=== PATIENT | male | born 1985 | race Caucasian/White ===

== ENCOUNTER 2018-10-07 18:59 | Emergency (ER) | payer SELFPAY ==
[2018-10-07 19:17] VITALS: BMI 25.2
--- NOTE | 2018-10-07 19:59 | PDOC ---
History of Present Illness <Mikki Hardwick - Last Filed: 10/07/18 21:41> - General History Source: Patient - History of Present Illness Initial Comments: 10/07/18 19:54 33 yr old man with no significant pmhx presents with persistent nausea and 3 episodes of nonbloody vomiting since . he works in a kitchen and ate cooked rice, salmon and orange juice. he had 1 episode of emesis 30mins after. nausea persisted throughout tuesday, but he was able to eat a salad consistent of vegetables. today he had another episode of vomiting after eating. still feels nauseous. he took peptobismal at home that helped with the symptoms. takes unknown psych medication for depression, he stopped it out of his own accord 1 month ago. had a dry cough for 3 days, 1 month ago. denies travel. Denies headache, chest pain, cough, abdominal pain, diarrhea, constipation, fever. current everyday smoker: 2-3cigs since he was 22 denies etoh use, nothing current in last 1 month. used to rarely smoke marijuana , last use in his 20's surghx - denies Timing/Duration: other (since 10/05/2018) Severity: mild Associated Symptoms: reports: nausea/vomiting <Bridget Luna - Last Filed: 10/07/18 21:48> - General Chief Complaint: Pain, Acute Stated Complaint: STOMACH PAIN/NAUSEA Time Seen by Provider: 10/07/18 19:42 Past History <Mikki Hardwick - Last Filed: 10/07/18 21:41> - Travel Traveled outside of the country in the last 30 days: No - Past Medical History COPD: No - Suicide/Smoking/Psychosocial Hx Smoking History: Current every day smoker Have you smoked in the past 12 months: Yes <Bridget Luna - Last Filed: 10/07/18 21:48> - Past Medical History Allergies/Adverse Reactions: Allergies Allergy/AdvReac Type Severity Reaction Status Date / Time No Known Allergies Allergy Verified 10/07/18 19:17 Review of Systems - Review of Systems Able to Perform ROS?: Yes Is the patient limited Zambian proficient: No Constitutional: No: Fever, Loss of Appetite, Night Sweats, Weakness, Weight Stable, Unintentional Wgt. Loss Cardiac (ROS): No: Chest Pain <Jose Lunaithsophia - Last Filed: 10/07/18 21:48> *Physical Exam - Vital Signs Last Vital Signs Temp Pulse Resp BP Pulse Ox 98.5 F 69 18 114/74 98 10/07/18 19:16 10/07/18 19:16 10/07/18 19:16 10/07/18 19:16 10/07/18 19:16 <Mikki Hardwick - Last Filed: 10/07/18 21:41> - Vital Signs Last Vital Signs Temp Pulse Resp BP Pulse Ox 98.5 F 69 18 114/74 98 10/07/18 19:16 10/07/18 19:16 10/07/18 19:16 10/07/18 19:16 10/07/18 19:16 - Physical Exam General Appearance: Yes: Nourished, Appropriately Dressed HEENT: positive: EOMI, ANDREA, Normal Voice, Pharynx Normal, Hearing Grossly Normal Neck: positive: Trachea midline, Normal Thyroid, Supple Respiratory/Chest: positive: Lungs Clear, Normal Breath Sounds Cardiovascular: positive: Regular Rhythm, Regular Rate. negative: Murmur Gastrointestinal/Abdominal: positive: Normal Bowel Sounds. negative: Tender, Organomegaly, Pulsatile Mass, Distended, Guarding, Rebound Musculoskeletal: negative: CVA Tenderness Extremity: positive: Normal Range of Motion Neurologic: positive: Fully Oriented, Alert, Motor Strength 5/5 <Bridget Luna - Last Filed: 10/07/18 21:48> Moderate Sedation - Procedure Monitoring Vital Signs: Procedure Monitoring Vital Signs Temperature 98.5 F 10/07/18 19:16 Pulse Rate 10/07/18 19:16 Respiratory Rate 18 10/07/18 19:16 Blood Pressure 114/74 10/07/18 19:16 O2 Sat by Pulse Oximetry (%) 98 10/07/18 19:16 <Mikki Hardwick - Last Filed: 10/07/18 21:41> - Procedure Monitoring Vital Signs: Procedure Monitoring Vital Signs Temperature 98.5 F 10/07/18 19:16 Pulse Rate 69 10/07/18 19:16 Respiratory Rate 18 10/07/18 19:16 Blood Pressure 114/74 10/07/18 19:16 O2 Sat by Pulse Oximetry (%) 98 10/07/18 19:16 <Bridget Luna - Last Filed: 10/07/18 21:48> ED Treatment Course - LABORATORY CBC & Chemistry Diagram: 10/07/18 20:31 10/07/18 20:31 - ADDITIONAL ORDERS Additional order review: Laboratory Results 10/07/18 20:31 Sodium 139 Potassium 3.7 Chloride 102 Carbon Dioxide 31 Anion Gap 6 L BUN 17 Creatinine 0.7 Creat Clearance w eGFR > 60 Random Glucose 96 Calcium 8.5 Total Bilirubin 0.2 AST 22 ALT 41 Alkaline Phosphatase 116 Total Protein 7.6 Albumin 4.2 10/07/18 20:31 RBC 4.94 MCV 86.6 MCHC 35.5 RDW 13.2 MPV 7.5 Neutrophils % 51.2 Lymphocytes % 27.3 Monocytes % 15.5 H Eosinophils % 5.2 H Basophils % 0.8 - Medications Given in the ED: ED Medications Discontinued Medications Generic Name Dose Route Start Last Admin Trade Name Freq PRN Reason Stop Dose Admin Sodium Chloride 1,000 ml 10/07/18 20:44 10/07/18 21:07 Normal Saline - IV 10/07/18 20:45 1,000 ml ONCE ONE Administration <Mikki Hardwick - Last Filed: 10/07/18 21:41> - LABORATORY CBC & Chemistry Diagram: 10/07/18 20:31 10/07/18 20:31 <Bridget Luna - Last Filed: 10/07/18 21:48> Medical Decision Making - Medical Decision Making 10/07/18 20:23 33 yr old man with no pmhx with nausea for 2 days without fever and normal vital signs. will check cmp for any electrolyte abnormalities, renal and liver dysfunction that may be causing his symptoms and r/o volume depletion. he appears euvolemic symptoms could indicate hyperglycemia, will see that on cmp. if labs are stable, may be able to dc home with outpatient pcp follow-up. IVF 1L for hydration 10/07/18 21:27 pt tolerated po change with water, labs all within normal limits. no hyper or hypoglycemia, no electrolyte abnormalities to account for nausea/vomiting. can f/u as outpatient with PCP Dr. Coello recommend OTC meds for relief, counseled on new symptoms and on indications to return to ED. 10/07/18 21:47 reviewed findings with pt, pt is in agreement with plan to monitor symptoms at home, f/u with his PCP and RTC to the ED for any new or worsening symptoms <Bridget Luna - Last Filed: 10/07/18 21:48> *DC/Admit/Observation/Transfer - Discharge Dispostion Decision to Admit order: No <Mikki Hardwick - Last Filed: 10/07/18 21:41> <Bridget Luna - Last Filed: 10/07/18 21:48> Diagnosis at time of Disposition: Food poisoning - Discharge Dispostion Disposition: HOME Condition at time of disposition: Improved - Patient Instructions Printed Discharge Instructions: DI for Food Poisoning, Smoking Cessation Additional Instructions: You were evaluated for nausea and vomiting for 2 days. you didn't have a fever, or any lab abnormalities and able to drink water without any difficulty. Drink plenty of water and eat what you can tolerate. If you symptoms worse or return, or you develop any new symptoms including diarrhea, chest pain, fevers, trouble breathing please return to the hospital. Please see you primary care physician as soon as possible for post-hospital follow-up. - Post Discharge Activity Forms/Work/School Notes: Back to Work
[2018-10-07 20:39] LABS: BASO % 0.8 % (0-2.0); EOS % 5.2 % (0-4.5); HEMATOCRIT 42.8 % (35.4-49); HEMOGLOBIN 15.2 GM/dL (11.7-16.9); LYMPH % 27.3 % (8-40); MCH 30.7 pg (25.7-33.7); MCHC 35.5 g/dl (32.0-35.9); MEAN CELL VOLUME 86.6 fl (80-96); MEAN PLT VOLUME 7.5 fl (7.5-11.1); MONO % 15.5 % (3.8-10.2); NEUT % 51.2 % (42.8-82.8); PLATELET COUNT 257 K/MM3 (134-434); RBC 4.94 M/mm3 (4.00-5.60); RDW 13.2 % (11.9-15.9); WHITE BLOOD COUNT 5.6 K/mm3 (4.0-10.0)
[2018-10-07] MEDS ORDERED: SODIUM CHLORIDE 0.9% 500 ML INFUS.BAG IV ONE (20:44)
--- NOTE | 2018-10-07 20:44 | PDOC ---
Attending Attestation - HPI HPI: 10/07/18 21:21 The patient is a 33 year old male with no reported past medical history presents to the emergency department with nausea and vomiting. The patient presents with 3 days of nausea, NBNB emesis and diarrhea. The patient reports on Tuesday he was still feeling nauseous, however he was able to keep food down without emesis. The patient reports today he was still feeling nauseous with a single episode of emesis. 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 Denies fever, chills, diarrhea, urinary symptoms. Allergies: NKDA Social history: everyday smoker. - Physicial Exam PE: 10/07/18 21:38 GENERAL: Awake, alert, and fully oriented, in no acute distress. Afebril. HEAD: No signs of trauma LUNGS: Breath sounds equal, clear to auscultation bilaterally. No wheezes, and no crackles HEART: Regular rate and rhythm, normal S1 and S2, no murmurs, rubs or gallops ABDOMEN: No abdominal pain in all 4 quadrants. No rebound or guarding. normoactive bowel sounds. EXTREMITIES: Normal range of motion, no edema. No clubbing or cyanosis. No cords, erythema, or tenderness NEUROLOGICAL: Cranial nerves II through XII grossly intact. Normal speech, normal gait SKIN: Warm, Dry, normal turgor, no rashes or lesions noted. - Medical Decision Making 10/07/18 21:21 Documentation prepared by Khushi Charles, acting as biomedical service engineer for Mikki Hardwick MD. <Khushi Charles - Last Filed: 10/07/18 21:38> - Resident Resident Name: Bridget Luna - ED Attending Attestation I have performed the following: I have examined & evaluated the patient, The case was reviewed & discussed with the resident, I agree w/resident's findings & plan - Medical Decision Making 10/07/18 21:33 Pt has no rebound and guarding and feels much better. No fever and no flank or perineal pain or complaints. Pt has no dysuria and no penile discharge. 10/07/18 23:10 Pt feeling better; he needs a work note for 3 days off <Mikki Hardwick - Last Filed: 10/07/18 23:11>
[2018-10-07 21:05] LABS: ALBUMIN 4.2 g/dl (3.4-5.0); ALK PHOS 116 U/L (45-117); ANION GAP 6 MMOL/L (8-16); BILIRUBIN,TOTAL 0.2 mg/dL (0.2-1); BLOOD UREA NITROGEN 17 mg/dL (7-18); CALCIUM 8.5 mg/dL (8.5-10.1); CHLORIDE 102 mmol/L (98-107); CO2 31 mmol/L (21-32); CREATININE 0.7 mg/dL (0.55-1.3); GLUCOSE,RANDOM 96 mg/dL (74-106); POTASSIUM 3.7 mmol/L (3.5-5.1); SGOT/AST 22 U/L (15-37); SGPT/ALT 41 U/L (13-61); SODIUM 139 mmol/L (136-145); TOT PROT 7.6 g/dl (6.4-8.2)
[2018-10-07 22:18] VITALS: BP 115/72; PULSE 64; TEMP 98.1
== END 2018-10-07 22:18 | disposition home or self-care (01) ==
LOC: JER 18:59
DX: T62.8X1A Toxic effect of other specified noxious substances eaten as food, accidental (unintentional), initial encounter (principal); R11.2 Nausea with vomiting, unspecified; Y92.038 Other place in apartment as the place of occurrence of the external cause; F17.210 Nicotine dependence, cigarettes, uncomplicated
CPT/HCPCS: 36415; 80053; 85025; 99282-25

== ENCOUNTER 2018-12-29 00:37 | Emergency (ER) | payer OTHER ==
[2018-12-29 00:57] VITALS: BP 119/64; BMI 27.9
--- NOTE | 2018-12-29 01:13 | PDOC ---
History of Present Illness - General Chief Complaint: Cold Symptoms Stated Complaint: FEVER Time Seen by Provider: 12/29/18 01:04 - History of Present Illness Initial Comments: 12/29/18 01:11 33 yo M with no significant pmh who p/w vomiting, and diarrhea. Patient reports 1 day of multiple, non mucoid, non bloody 5 + loose watery stools, with 5+ episodes of NBNB emesis. Unable to tolerate PO intake. Denies recent travel, hiking, camping, sick contacts. Recently treated for flu x 1 month ago. Denies abdominal pain. No identifiable triggers or alleviators. Patient denies JONES, vision change, palpitations, cough, wheezing, orthopena, PND , leg swelling/pain, F,C, CP, SOB, urinary complaints, hematuria, BPR, abdominal pain, constipation, lightheadedness, weakness, sensory changes. PMHx: as noted above Surgical: Denies abdominal surgery ROS: as noted SHx: Denies Etoh, IVDA, tobacco use Allergies: NKDA Past History - Past Medical History Allergies/Adverse Reactions: Allergies Allergy/AdvReac Type Severity Reaction Status Date / Time No Known Allergies Allergy Verified 12/29/18 00:53 Home Medications: Ambulatory Orders NK [No Known Home Medication] 12/29/18 COPD: No - Suicide/Smoking/Psychosocial Hx Smoking History: Never smoked Have you smoked in the past 12 months: No Information on smoking cessation initiated: No Hx Alcohol Use: No Drug/Substance Use Hx: No Review of Systems - Review of Systems Comments:: 12/29/18 01:12 GENERAL/CONSTITUTIONAL: No fever or chills. No weakness. HEAD, EYES, EARS, NOSE AND THROAT: No change in vision. No ear pain or discharge. No sore throat. CARDIOVASCULAR: No chest pain or shortness of breath RESPIRATORY: No cough, wheezing, or hemoptysis. GASTROINTESTINAL: + nausea, vomiting, diarrhea. No constipation. GENITOURINARY: No dysuria, frequency, or change in urination. MUSCULOSKELETAL: No joint or muscle swelling or pain. No neck or back pain. SKIN: No rash NEUROLOGIC: No headache, vertigo, loss of consciousness, or change in strength/ sensation. ENDOCRINE: No increased thirst. No abnormal weight change HEMATOLOGIC/LYMPHATIC: No anemia, easy bleeding, or history of blood clots. ALLERGIC/IMMUNOLOGIC: No hives or skin allergy. *Physical Exam - Vital Signs Last Vital Signs Temp Pulse Resp BP Pulse Ox 99.7 F H 108 H 20 119/64 97 12/29/18 00:53 12/29/18 00:53 12/29/18 00:53 12/29/18 00:53 12/29/18 00:53 - Physical Exam Comments: 12/29/18 01:12 GENERAL: Awake, alert, and fully oriented, in no acute distress HEAD: No signs of trauma, normocephalic, atraumatic EYES: PERRLA, EOMI, sclera anicteric, conjunctiva clear ENT: + Dry mucous membranes. Auricles normal inspection, hearing grossly normal , nares patent, oropharynx clear without exudates. NECK: Normal ROM, supple, no lymphadenopathy, JVD, or masses LUNGS: No distress, speaks full sentences, clear to auscultation bilaterally HEART: Regular rate and rhythm, normal S1 and S2, no murmurs, rubs or gallops, peripheral pulses normal and equal bilaterally. ABDOMEN: Soft, nontender, normoactive bowel sounds. No guarding, no rebound. No masses EXTREMITIES : Normal inspection, Normal range of motion, no edema. No clubbing or cyanosis. NEUROLOGICAL: Cranial nerves II through XII grossly intact. Normal speech, normal gait, no focal sensorimotor deficits SKIN: Warm, Dry, normal turgor, no rashes or lesions noted ED Treatment Course - LABORATORY CBC & Chemistry Diagram: 12/29/18 04:27 12/29/18 04:00 Medical Decision Making - Medical Decision Making 12/29/18 01:47 33 yo M with no significant pmh who p/w vomiting, and diarrhea. Oral temp 99.7, HR 108, vitals otherwise wnl, AF, A&Ox3. + Dry mucous membranes. Patient with possible gastroenteritis, malabsorption syndrome, gastritis, pancreatitis, biliary dz. gastroparesis. Will assess for cardiac dysarrythmias, hypoglycemia, electrolyte abnml, metabolic and toxic derangements, acid-base disturbances, infection. Ed Course: NS, Zofran, Tylenol 12/29/18 04:56 CBC,CMP: Unremarkable Patient tolerating PO intake Stable for d/c with return precautions *DC/Admit/Observation/Transfer Diagnosis at time of Disposition: Vomiting and diarrhea - Discharge Dispostion Condition at time of disposition: Stable Decision to Admit order: No - Referrals - Patient Instructions Printed Discharge Instructions: DI for Diarrhea and Traveler's Diarrhea -- Adult Additional Instructions: Please return to the emergency department with any new or worsening symptoms or concerns. Please follow up with your primary care physician within 72 hours. - Post Discharge Activity
[2018-12-29] MEDS ORDERED: ONDANSETRON 4 MG/2 ML VIAL IVPB ONE (01:38)
[2018-12-29] MEDS ORDERED: ACETAMINOPHEN 1000 MG/100 ML VIAL (NON FORMULARY) IVPB ONE (01:39)
[2018-12-29] MEDS ORDERED: SODIUM CHLORIDE 1,000 ML IV STA (01:39)
[2018-12-29] MEDS ORDERED: ACETAMINOPHEN INJECTION 100 ML IVPB ONE (01:49)
[2018-12-29] MEDS ORDERED: ONDANSETRON 4 MG/2 ML VIAL ONE (01:50)
--- NOTE | 2018-12-29 03:26 | PDOC ---
Attending Attestation - Resident Resident Name: Kirit Bauer - ED Attending Attestation I have performed the following: I have examined & evaluated the patient, The case was reviewed & discussed with the resident, I agree w/resident's findings & plan, Exceptions are as noted - HPI HPI: 12/29/18 05:12 33M denies pmh here with 1 day of nausea, multiple episodes of vomiting/diarrhea , no sick contacts, recent travel, states he had flu last month. No other complaints. - Physicial Exam PE: 12/29/18 05:13 Well appearing, NAD, AOx3 Abd soft, nt, nd, no guarding, no rebound - Medical Decision Making 12/29/18 05:13 Benign abdominal exam, likely AGE f/u labs re-eval after symptomatic tx Labs unremarkable Subjective complaints resolved with tx No episodes of vomiting/diarrhea in ED DC
[2018-12-29 04:26] LABS: ALK PHOS 85 U/L (45-117); ANION GAP 9 MMOL/L (8-16); BILIRUBIN,TOTAL 0.2 mg/dL (0.2-1); BLOOD UREA NITROGEN 12 mg/dL (7-18); CALCIUM 8.6 mg/dL (8.5-10.1); CHLORIDE 106 mmol/L (98-107); CO2 24 mmol/L (21-32); CREATININE 0.7 mg/dL (0.55-1.3); GLUCOSE,RANDOM 103 mg/dL (74-106); POTASSIUM 3.8 mmol/L (3.5-5.1); SGOT/AST 30 U/L (15-37); SGPT/ALT 38 U/L (13-61); SODIUM 139 mmol/L (136-145); TOT PROT 7.5 g/dl (6.4-8.2)
[2018-12-29 04:36] LABS: BASO % 0.5 % (0-2.0); EOS % 1.5 % (0-4.5); HEMATOCRIT 40.1 % (35.4-49); HEMOGLOBIN 13.3 GM/dL (11.7-16.9); LYMPH % 10.4 % (8-40); MCH 29.2 pg (25.7-33.7); MCHC 33.3 g/dl (32.0-35.9); MEAN CELL VOLUME 87.7 fl (80-96); MEAN PLT VOLUME 7.6 fl (7.5-11.1); MONO % 6.1 % (3.8-10.2); NEUT % 81.5 % (42.8-82.8); PLATELET COUNT 190 K/MM3 (134-434); RBC 4.57 M/mm3 (4.00-5.60); RDW 14.2 % (11.9-15.9)
[2018-12-29 04:55] VITALS: PULSE 88; TEMP 98.8
[2018-12-29 04:59] LABS: URINE APPEARANCE CLEAR; URINE BILIRUBIN NEGATIVE (NEGATIVE); URINE COLOR YELLOW; URINE GLUCOSE (UA) NEGATIVE (NEGATIVE); URINE KETONE NEGATIVE (NEGATIVE); URINE LEUK ESTERASE NEGATIVE (NEGATIVE); URINE NITRITE NEGATIVE (NEGATIVE); URINE PROTEIN NEGATIVE (NEGATIVE); URINE UROBILINOGEN 0.2 mg/dL (0.2-1.0)
== END 2018-12-29 05:14 | disposition home or self-care (01) ==
LOC: JER 00:37
PROC: 3E033NZ Introduction of Analgesics, Hypnotics, Sedatives into Peripheral Vein, Percutaneous Approach (ICD-10-PCS; principal; 2018-12-29)
PROC: 3E033GC Introduction of Other Therapeutic Substance into Peripheral Vein, Percutaneous Approach (ICD-10-PCS; 2018-12-29)
DX: K52.9 Noninfective gastroenteritis and colitis, unspecified (principal)
CPT/HCPCS: 36415; 80053; 81003; 83690; 85025; 96374; 96375; 99282-25; J0131; J7030

== ENCOUNTER 2019-06-13 20:05 | Inpatient (IN) | payer OTHER ==
[2019-06-13] MEDS ORDERED: SODIUM CHLORIDE 1,000 ML IV STA (20:13)
[2019-06-13] MEDS ORDERED: ONDANSETRON 4 MG/2 ML VIAL IVPUSH ONE (20:13)
--- NOTE | 2019-06-13 20:13 | PDOC ---
Rapid Medical Evaluation Time Seen by Provider: 06/13/19 20:11 Medical Evaluation: Allergies Allergy/AdvReac Type Severity Reaction Status Date / Time No Known Allergies Allergy Verified 12/29/18 00:53 06/13/19 20:11 CC: diffuse abd pain with n/v PE: Abd benign. Orders: labs, urine Patient will proceed to ER for further evaluation. Discharge Disposition - Diagnosis Abdominal pain - Referrals - Patient Instructions - Post Discharge Activity
[2019-06-13 20:49] LABS: BASO % 0.6 % (0-2.0); EOS % 0.8 % (0-4.5); HEMATOCRIT 43.3 % (35.4-49); HEMOGLOBIN 14.1 GM/dL (11.7-16.9); LYMPH % 8.3 % (8-40); MCH 28.4 pg (25.7-33.7); MCHC 32.5 g/dl (32.0-35.9); MEAN CELL VOLUME 87.5 fl (80-96); MEAN PLT VOLUME 7.6 fl (7.5-11.1); MONO % 7.2 % (3.8-10.2); NEUT % 83.1 % (42.8-82.8); PLATELET COUNT 276 K/MM3 (134-434); RBC 4.96 M/mm3 (4.00-5.60); RDW 13.7 % (11.9-15.9); URINE APPEARANCE CLEAR; URINE BILIRUBIN NEGATIVE (NEGATIVE); URINE COLOR YELLOW; URINE GLUCOSE (UA) NEGATIVE (NEGATIVE); URINE KETONE NEGATIVE (NEGATIVE); URINE LEUK ESTERASE NEGATIVE (NEGATIVE); URINE NITRITE NEGATIVE (NEGATIVE); URINE PROTEIN NEGATIVE (NEGATIVE); URINE UROBILINOGEN 0.2 mg/dL (0.2-1.0); WHITE BLOOD COUNT 14.8 K/mm3 (4.0-10.0)
[2019-06-13] MEDS ORDERED: ONDANSETRON 4 MG/2 ML VIAL ONE (21:18)
[2019-06-13 21:19] LABS: ALBUMIN 4.2 g/dl (3.4-5.0); BILIRUBIN,TOTAL 0.2 mg/dL (0.2-1); BLOOD UREA NITROGEN 11.8 mg/dL (7-18); CALCIUM 8.9 mg/dL (8.5-10.1); CREATININE 0.8 mg/dL (0.55-1.3); POTASSIUM 4.1 mmol/L (3.5-5.1); TOT PROT 7.7 g/dl (6.4-8.2)
[2019-06-13] MEDS ORDERED: SODIUM CHLORIDE 0.9% 1000 ML INFUS.BAG IV ONE (21:21)
[2019-06-13] MEDS ORDERED: ACETAMINOPHEN 1000 MG/100 ML VIAL (NON FORMULARY) IVPB ONE (21:23)
[2019-06-13] MEDS ORDERED: FAMOTIDINE 20 MG/50 ML IVPB 20 MG/50 ML MG IVPB ONE ×2 (21:23→22:20)
[2019-06-13] MEDS ORDERED: MAG HYDROX/AL HYDROX/SIMETH 30 ML UNIT-DOSE CUP PO ONE (21:23)
--- NOTE | 2019-06-13 21:51 | PDOC ---
History of Present Illness - General Chief Complaint: Pain Stated Complaint: ABD/PAIN Time Seen by Provider: 06/13/19 20:11 - History of Present Illness Initial Comments: 06/13/19 21:51 This is a 34 year old male with no significant PMH. He presented to the ER with complaints of diffuse abdominal pain that began around 4PM. The pain was sudden in onset, 9/10 in intensity, dull in quality, constant in nature, non-radiating , alleviated by lying still and exacerbated by movement. He has had no associated nausea, vomiting, diarrhea,2 or constipation. Past History - Travel Traveled outside of the country in the last 30 days: No Close contact w/someone who was outside of country & ill: No - Past Medical History Allergies/Adverse Reactions: Allergies Allergy/AdvReac Type Severity Reaction Status Date / Time No Known Allergies Allergy Verified 06/13/19 20:14 Home Medications: Ambulatory Orders Acetaminophen [Tylenol] 650 mg PO PRN 12/29/18 Ondansetron [Zofran Odt -] 4 mg SL BID #14 od.tablet 12/29/18 COPD: No - Immunization History Immunization Up to Date: Yes - Psycho Social/Smoking Cessation Hx Smoking History: Never smoked Have you smoked in the past 12 months: No Information on smoking cessation initiated: No Hx Alcohol Use: No Drug/Substance Use Hx: No Review of Systems - Review of Systems Able to Perform ROS?: Yes Is the patient limited [place]uran proficient: No Constitutional: No: Symptoms Reported, See HPI, Chills, Diaphoresis, Fever, Loss of Appetite, Malaise, Night Sweats, Weakness, Weight Stable, Unintentional Wgt. Loss, Unexplained wgt Loss, Other HEENTM: No: Symptoms Reported, See HPI, Eye Pain, Blurred Vision, Tearing, Recent change in vision, Double Vision, Cataracts, Ear Pain, Ocular Prothesis, Ear Discharge, Nose Pain, Nose Congestion, Tinnitus, Nose Bleeding, Hearing Loss , Throat Pain, Throat Swelling, Mouth Pain, Dental Problems, Difficulty Swallowing, Mouth Swelling, Other Respiratory: No: Symptoms reported, See HPI, Cough, Orthopnea, Shortness of Breath, SOB with Exertion, SOB at Rest, Stridor, Wheezing, Productive cough, Hemoptysis, Other Cardiac (ROS): No: Symptoms Reported, See HPI, Chest Pain, Edema, Irregular Heart Rate, Lightheadedness, Palpitations, Syncope, Chest Tightness, Other ABD/GI: Yes: Abdominal cramping : No: Symptoms Reported, See HPI, Burning, Dysuria, Discharge, Frequency, Flank Pain, Hematuria, Incontinence, Pain, Urgency, Testicular Mass, Testicular Swelling, Lesions, Testicular Pain, Other Musculoskeletal: No: Symptoms Reported, See HPI, Back Pain, Gout, Joint Pain, Joint Swelling, Muscle Pain, Muscle Weakness, Neck Pain, Joint Stiffness, Other Integumentary: No: Symptoms Reported, See HPI, Bruising, Change in Color, Change in Hair/Nails, Dryness, Erythema, Flushing, Lesions, Lumps, Pallor, Pruritus, Rash, Sweating, Other Neurological: No: Symptoms reported, See HPI, Headache, Numbness, Paresthesia, Pre-Existing Deficit, Seizure, Tingling, Tremors, Weakness, Unsteady Gait, Ataxia, Dizziness, Other Psychiatric: No: Anxiety, Depression, Frequent Crying, Stressors, Sleep Pattern Change, Emotional Problems, Mood Swings, Change in Appetite, Other Endocrine: No: Symptoms Reported, See HPI, Excessive Sweating, Flushing, Intolerance to Cold, Intolerance to Heat, Increased Hunger, Increased Thirst, Increased Urine, Unexplained Weight Gain, Unexplained Weight Loss, Change in Weight, Other Hematologic/Lymphatic: No: Symptoms Reported, See HPI, Anemia, Blood Clots, Easy Bleeding, Easy Bruising, Bleeding Diathesis, Lymph Node Abnormalities, Swollen Glands, Other *Physical Exam - Vital Signs Last Vital Signs Temp Pulse Resp BP Pulse Ox 99.8 F H 101 H 18 122/79 100 06/13/19 20:12 06/13/19 20:12 06/13/19 20:12 06/13/19 20:12 06/13/19 20:12 - Physical Exam Comments: 06/13/19 23:15 GI: Soft, epigastric and umbilical tenderness, no CVA tenderness, no guarding or rebound tenderness, negative Psoas, Mena's, and Rovsing's General Appearance: Yes: Appropriately Dressed. No: Nourished, Apparent Distress, Disheveled, Mild Distress, Moderate Distress, Severe Distress, Alcohol on Breath, Intoxicated, Cachetic, Obese, Thin, Other HEENT: positive: Normal ENT Inspection, Normal Voice, Symmetrical, Pharynx Normal. negative: EOMI, ANDREA, TMs Normal, Pale Conjunctivae, Photophobia, Scleral Icterus (R), Scleral Icterus (L), Muffled/Hoarse voice, Pharyngeal Erythema, Tonsillar Exudate, Tonsillar Erythema, Nasal Congestion, Rhinorrhea, Sinus Tenderness, Orbits, Hearing Decreased, Hearing Grossly Normal, TM Bulging , TM Dull, TM Erythema, Lesions, Mccarty, Excessive drooling, Thrush, Other Neck: positive: Trachea midline, Normal Thyroid. negative: Tender, Rigid, Supple, Carotid bruit, Decreased range of motion, Stridor, Lymphadenopathy (R), Lymphadenopathy (L), Rigidity, Tender lateral, Tender midline, Thyromegaly, Other Respiratory/Chest: positive: Lungs Clear, Normal Breath Sounds. negative: Chest Tender, Respiratory Distress, Accessory Muscle Use, Labored Respiration, Rapid RR, Decreased Breath Sounds, Paradoxal Breathing, Crackles, Rales, Rhonchi , Stridor, Wheezing, Hyperresonant, Dullness, Plerual Rub, Other Cardiovascular: positive: Regular Rhythm, Tachycardia. negative: Regular Rate, S1, S2, Edema, JVD, Murmur, Bradycardia, Diastolic Murmur, Systolic Murmur, Gallop/S3, Gallop/S4, Irregularly Irregular, Irregular, Other Gastrointestinal/Abdominal: positive: Tender Neurologic: positive: third rigger II-XII NML intact, Fully Oriented, Alert, Normal Mood/ Affect, Normal Response, Motor Strength 5/5. negative: Abnormal Cranial NS, Respond to painful stimul, Responsive, EOM Palsy, Facial Droop, Numbness, Sensory Deficit, Finger to Nose, Confused, Disoriented, Depressed Affect, Babinski, Other ED Treatment Course - LABORATORY CBC & Chemistry Diagram: 06/13/19 20:32 06/13/19 20:32 - ADDITIONAL ORDERS Additional order review: Laboratory Results 06/13/19 06/13/19 20:32 20:32 Sodium 136 Potassium 4.1 Chloride 102 Carbon Dioxide 29 Anion Gap 5 L BUN 11.8 Creatinine 0.8 Est GFR (CKD-EPI)AfAm 136.03 Est GFR (CKD-EPI)NonAf 117.37 Random Glucose 105 Calcium 8.9 Total Bilirubin 0.2 AST 21 ALT 35 Alkaline Phosphatase 93 Total Protein 7.7 Albumin 4.2 Lipase 139 Urine Color Yellow Urine Appearance Clear Urine pH 7.0 Ur Specific [employer] 1.021 Urine Protein Negative Urine Glucose (UA) Negative Urine Ketones Negative Urine Blood Negative Urine Nitrite Negative Urine Bilirubin Negative Urine Urobilinogen 0.2 Ur Leukocyte Esterase Negative 06/13/19 20:32 RBC 4.96 MCV 87.5 MCHC 32.5 RDW 13.7 MPV 7.6 Neutrophils % 83.1 H Lymphocytes % 8.3 D Monocytes % 7.2 Eosinophils % 0.8 Basophils % 0.6 Medical Decision Making - Medical Decision Making 06/13/19 21:17 - CBC/CMP - UA - N/S 1000 - Tylenol IV - Pepcid 06/13/19 22:20 - Labs show WBC 14.8 - POC US shows no evidence of cholecystitis or cholelithiasis - CT AP - Senior Buyer phone used to explain to the patient what a CT scan is 06/14/19 00:10 - CT AP: Non perforated appendicitis - Spoke to Dr. Higgins, will admit - Starting on IV Ceftriaxone and Flagyl - Explained diagnosis to patient in Vietnamese Discharge - Discharge Information Problems reviewed: Yes Clinical Impression/Diagnosis: Abdominal pain - Admission Yes - Follow up/Referral - Patient Discharge Instructions - Post Discharge Activity
--- NOTE | 2019-06-13 21:57 | PDOC ---
Documentation entered by Peggy Beverly SCRIBE, acting as scribe for Mildred Del Angel DO. Mildred Del Angel DO: This documentation has been prepared by the Rush mendieta Xhesika, SCRIBE, under my direction and personally reviewed by me in its entirety. I confirm that the documentation accurately reflects all work, treatment, procedures, and medical decision making performed by me. Attending Attestation - Resident Resident Name: ChadmayankKashmir - ED Attending Attestation I have performed the following: I have examined & evaluated the patient, The case was reviewed & discussed with the resident, I agree w/resident's findings & plan, Exceptions are as noted - HPI HPI: 06/13/19 21:24 The patient is a 34 year old male with no significant PMH of who presents to the emergency department for sudden onset of epigastric pain and RLQ pain since 4pm. Patient describes the pain as dull, constant in nature, non-radiating, worsened with movement and alleviated when lying down. Patient notes he had wings with jalapeno sauce prior to his abdominal pain beginning. Patient notes he had a normal BM 1hr after his pain began. The patient denies cp, shortness of breath, headache, dizziness, ever, chills, cough, nausea, vomiting, diarrhea and constipation. Denies dysuria, frequency, urgency and hematuria. Allergies: NKDA Social history: occasional alcohol use. 5 cigarettes per day - Physicial Exam PE: 06/13/19 21:36 GENERAL: Awake, alert, and fully oriented, in no acute distress LUNGS: Breath sounds equal, clear to auscultation bilaterally. No wheezes, and no crackles HEART: Regular rate and rhythm, normal S1 and S2, no murmurs, rubs or gallops ABDOMEN: + epigastric tenderness. + RLQ tenderness. No guarding, no rebound. NEUROLOGICAL: Normal speech, normal gait SKIN: Warm, Dry, normal turgor, no rashes or lesions noted. - Medical Decision Making 06/13/19 21:55 I, Dr. Mildred Del Angel DO, attest that this document has been prepared under my direction and personally reviewed by me in its entirety. I further attest, that it accurately reflects all work, treatment, procedures and medical decision -making performed by me. a/p: 34yo male with abd pain after eating wings and jalapenos -hx of similar in the past -assoc with nausea -no fevers -pt with epigastric and RLQ pain -pocus bedside RUQ ultrasound negative for acute dee -will send labs, ct abd/pelvis -will medicate and reassess 06/13/19 23:07 wbc [address] 06/14/19 00:13 called by radiology- pt with acute appendicitis on ct pt updated on lab and imaging results and willing to stay for surgical eval resident discussed the case with Dr. Higgins who will see patient in consult resident sent microblog to [facility] for admission 06/14/19 00:59 resident discussed the case with [facility] who accepts pt to service
[2019-06-13] MEDS ORDERED: MAG HYDROX/AL HYDROX/SIMETH 30 ML UNIT-DOSE CUP ONE (22:20)
[2019-06-13] MEDS ORDERED: ACETAMINOPHEN INJECTION 100 ML IVPB ONE (22:20)
[2019-06-14] MEDS ORDERED: CEFTRIAXONE 1,000 MG in DEXTROSE 5%-WATER - 50 ML IVPB ONE (00:12)
[2019-06-14] MEDS ORDERED: LACTATED RINGERS SOLUTION 1000 ML INFUS.BAG IV ONE (00:15)
[2019-06-14] MEDS ORDERED: CEFTRIAXONE 1 GM/50 ML BAG ONE (00:24)
[2019-06-14] MEDS ORDERED: SODIUM CHLORIDE 1,000 ML IV SCH ×3 (00:30→14:46)
[2019-06-14 01:04] LABS: INR 1.15 (0.83-1.09); PROTHROMBIN TIME (PATIENT) 13.6 SEC (9.7-13.0)
--- NOTE | 2019-06-14 01:52 | PN ---
Teaching Attending Note Name of Resident: Romi Orr ATTENDING PHYSICIAN STATEMENT I saw and evaluated the patient. I reviewed the resident's note and discussed the case with the resident. I agree with the resident's findings and plan as documented. SUBJECTIVE: 34 year old male with no significant PMH. He presented with complaints of diffuse abdominal pain that began around 4PM. The pain was sudden in onset, 9/ 10 in intensity, dull in quality, constant in nature, non-radiating, alleviated by lying still and exacerbated by movement. Found to be tachycardic and have low grade fever. OBJECTIVE: Last Vital Signs Temp Pulse Resp BP Pulse Ox 99.8 F H 101 H 18 122/79 100 06/13/19 20:12 06/13/19 20:12 06/13/19 20:12 06/13/19 20:12 06/13/19 20:12 gen -nontoxic heent -atraumatic abdomen -rlq tenderness, no rebound tenderness Abnormal Lab Results 06/13/19 06/13/19 06/14/19 20:32 20:32 00:35 WBC 14.8 H Absolute Neuts (auto) 12.3 H Neutrophils % 83.1 H PT with INR 13.60 H INR 1.15 H Anion Gap 5 L acute appendicitis on ct- as per radiology call ASSESSMENT AND PLAN: #Acute appendicitis, low grade fever, leukocytosis -admit to med/surg -npo -iv morphine -blood cultures -ceftriaxone, flagyl -pt, ptt -type and screen -iv fluid hydration -dvt ppx- scds
--- NOTE | 2019-06-14 02:00 | HP ---
CHIEF COMPLAINT: abdominal pain PCP: Dr. Loretta Ramos HISTORY OF PRESENT ILLNESS: 34 y.o M PMH significant only for seasonal allergies presenting for 05/22 diffuse , constant, nonradiating RLQ abdominal pain. The pain began 4 days ago and was sudden in onset. Pt has never had a pain like this in the past. The pain is relieved with rest and exacerbated by movement. Pt has not tried taking anything to help the pain. He has not eaten since 4pm yesterday due to the pain but at that time he had a fatty meal consisting of fried chicken wings with jalapenos. ER course was notable for: (1) RUQ US neg; CT abd pelvis + for acute non perforated appendicitis (2)Ceftriaxone 1g IV, flagyl 500mg IV, zofran 4mg, tg iv tylenol, iv pepcid, 1L NS (3) Dr. Higgins surgery consulted Recent Travel: denies PAST MEDICAL HISTORY: as per HPI PAST SURGICAL HISTORY: denies Social History: Smoking:denies Alcohol:denies Drugs: denies Allergies No Known Allergies Allergy (Verified 06/13/19 20:14) HOME MEDICATIONS: Home Medications Medication Instructions Recorded NK [No Known Home Medication] 06/14/19 REVIEW OF SYSTEMS CONSTITUTIONAL: Absent: fever, chills, diaphoresis, generalized weakness, malaise, loss of appetite, weight change HEENT: Absent: rhinorrhea, nasal congestion, throat pain, throat swelling, difficulty swallowing, mouth swelling, ear pain, eye pain, visual changes CARDIOVASCULAR: Absent: chest pain, syncope, palpitations, irregular heart rate, lightheadedness , peripheral edema RESPIRATORY: Absent: cough, shortness of breath, dyspnea with exertion, orthopnea, wheezing, stridor, hemoptysis GASTROINTESTINAL: Absent: abdominal pain, abdominal distension, nausea, vomiting, diarrhea, constipation, melena, hematochezia GENITOURINARY: Absent: dysuria, frequency, urgency, hesitancy, hematuria, flank pain, genital pain MUSCULOSKELETAL: Absent: myalgia, arthralgia, joint swelling, back pain, neck pain SKIN: Absent: rash, itching, pallor HEMATOLOGIC/IMMUNOLOGIC: Absent: easy bleeding, easy bruising, lymphadenopathy, frequent infections ENDOCRINE: Absent: unexplained weight gain, unexplained weight loss, heat intolerance, cold intolerance NEUROLOGIC: Absent: headache, focal weakness or paresthesias, dizziness, unsteady gait, seizure, mental status changes, bladder or bowel incontinence PSYCHIATRIC: Absent: anxiety, depression, suicidal or homicidal ideation, hallucinations. PHYSICAL EXAMINATION Vital Signs - 24 hr 06/13/19 20:12 Temperature 99.8 F H Pulse Rate 101 H Respiratory 18 Rate Blood Pressure 122/79 O2 Sat by Pulse 100 Oximetry (%) GENERAL: Awake, alert, and fully oriented, in no acute distress. HEENT: NCAT MMM no scleral icterus LUNGS: Breath sounds equal, clear to auscultation bilaterally. No wheezes, and no crackles. No accessory muscle use. HEART: Regular rate and rhythm, normal S1 and S2 without murmur, rub or gallop. ABDOMEN: Tender to palp RLQ McBurneys +. [place] negative. Soft, not distended, normoactive bowel sounds, some guarding present. No hepatomegaly EXTR: 2+ pulses present b/l UE & LE. No periph edema. PSYCHIATRIC: Cooperative. Good eye contact. Appropriate mood and affect. SKIN: No rashes or lesions noted Laboratory Results - last 24 hr 06/13/19 06/13/19 06/13/19 20:32 20:32 20:32 WBC 14.8 H RBC 4.96 Hgb 14.1 Hct 43.3 MCV 87.5 MCH 28.4 MCHC 32.5 RDW 13.7 Plt Count 276 D MPV 7.6 Absolute Neuts (auto) 12.3 H Neutrophils % 83.1 H Lymphocytes % 8.3 D Monocytes % 7.2 Eosinophils % 0.8 Basophils % 0.6 Nucleated RBC % 0 PT with INR INR Sodium 136 Potassium 4.1 Chloride 102 Carbon Dioxide 29 Anion Gap 5 L BUN 11.8 Creatinine 0.8 Est GFR (CKD-EPI)AfAm 136.03 Est GFR (CKD-EPI)NonAf 117.37 Random Glucose 105 Calcium 8.9 Total Bilirubin 0.2 AST 21 ALT 35 Alkaline Phosphatase 93 Total Protein 7.7 Albumin 4.2 Lipase 139 Urine Color Yellow Urine Appearance Clear Urine pH 7.0 Ur Specific [place] 1.021 Urine Protein Negative Urine Glucose (UA) Negative Urine Ketones Negative Urine Blood Negative Urine Nitrite Negative Urine Bilirubin Negative Urine Urobilinogen 0.2 Ur Leukocyte Esterase Negative 06/14/19 00:35 WBC RBC Hgb Hct MCV MCH MCHC RDW Plt Count MPV Absolute Neuts (auto) Neutrophils % Lymphocytes % Monocytes % Eosinophils % Basophils % Nucleated RBC % PT with INR 13.60 H INR 1.15 H Sodium Potassium Chloride Carbon Dioxide Anion Gap BUN Creatinine Est GFR (CKD-EPI)AfAm Est GFR (CKD-EPI)NonAf Random Glucose Calcium Total Bilirubin AST ALT Alkaline Phosphatase Total Protein Albumin Lipase Urine Color Urine Appearance Urine pH Ur Specific [place] Urine Protein Urine Glucose (UA) Urine Ketones Urine Blood Urine Nitrite Urine Bilirubin Urine Urobilinogen Ur Leukocyte Esterase ASSESSMENT/PLAN: 34 y.o. M PMH seasonal allergies presenting for abdominal pain #Acute appendicitis -CT abd/pel confirms acute appendicitis -Started rocephin/ flagyl -IVF NS @ 100mL/ hr -Dr. Higgins consulted -NPO -Pain well controlled; s/p 1g IV tylenol-- morphine prn if severe pain #Allergies -Not currently active -takes zyrtec prn at home #FEN -NS @100mL/ hr -Monitor lytes -NPO #DVT PPX -SCDs -early ambulation -hold other AC in setting of possible OR in AM Visit type - Emergency Visit Emergency Visit: Yes ED Registration Date: 06/14/19 Care time: The patient presented to the Emergency Department on the above date and was hospitalized for further evaluation of their emergent condition. - New Patient This patient is new to me today: Yes Date on this admission: 06/14/19 - Critical Care Critical Care patient: No ATTENDING PHYSICIAN STATEMENT I saw and evaluated the patient. I reviewed the resident's note and discussed the case with the resident. I agree with the resident's findings and plan as documented. SUBJECTIVE: OBJECTIVE: ASSESSMENT AND PLAN:
[2019-06-14 03:59] VITALS: BMI 28.7
[2019-06-14] MEDS ORDERED: ACETAMINOPHEN 1000 MG/100 ML VIAL (NON FORMULARY) IVPB ONE (04:59)
[2019-06-14] MEDS ORDERED: MORPHINE SULFATE 2 MG/ML VIAL IVPUSH PRN (06:14)
[2019-06-14 07:03] LABS: HEMATOCRIT 39.7 % (35.4-49); HEMOGLOBIN 13.2 GM/dL (11.7-16.9); MCH 29.2 pg (25.7-33.7); MCHC 33.3 g/dl (32.0-35.9); MEAN CELL VOLUME 87.8 fl (80-96); MEAN PLT VOLUME 7.9 fl (7.5-11.1); PLATELET COUNT 250 K/MM3 (134-434); RBC 4.52 M/mm3 (4.00-5.60); RDW 13.6 % (11.9-15.9); WHITE BLOOD COUNT 11.6 K/mm3 (4.0-10.0)
[2019-06-14 07:33] LABS: ALBUMIN 3.3 g/dl (3.4-5.0); BILIRUBIN,TOTAL 0.6 mg/dL (0.2-1); BLOOD UREA NITROGEN 7.3 mg/dL (7-18); CALCIUM 8.2 mg/dL (8.5-10.1); CREATININE 0.6 mg/dL (0.55-1.3); POTASSIUM 3.9 mmol/L (3.5-5.1); TOT PROT 6.3 g/dl (6.4-8.2)
[2019-06-14 07:40] LABS: INR 1.15 (0.83-1.09); PROTHROMBIN TIME (PATIENT) 13.6 SEC (9.7-13.0)
[2019-06-14 07:42] LABS: ACTIVATED PTT 37.2 SECONDS (25.2-36.5)
--- NOTE | 2019-06-14 09:38 | CONSULT ---
- Consultation REQUESTING PROVIDER: CONSULT REQUEST: We have been asked to surgically evaluate this patient for acute appendicitis PCP:Serenity Arias HISTORY OF PRESENT ILLNESS: This is a 34 year old male with no significant PMH. He presented to the ER with complaints of diffuse abdominal pain that began yesterday around 4PM. The pain was sudden in onset, 9/10 in intensity, dull in quality, constant in nature, non-radiating, alleviated by lying still and exacerbated by movement. He has had no associated nausea, vomiting, diarrhea, or constipation. Past History - Travel Traveled outside of the country in the last 30 days: No Close contact w/someone who was outside of country & ill: No - Past Medical History Allergies/Adverse Reactions: Allergies Allergy/AdvReac Type Severity Reaction Status Date / Time No Known Allergies Allergy Verified 06/13/19 20:14 Home Medications: Ambulatory Orders Acetaminophen [Tylenol] 650 mg PO PRN 12/29/18 Ondansetron [Zofran Odt -] 4 mg SL BID #14 od.tablet 12/29/18 COPD: No - Immunization History Immunization Up to Date: Yes - Psycho Social/Smoking Cessation Hx Smoking History: Never smoked Have you smoked in the past 12 months: No Information on smoking cessation initiated: No Hx Alcohol Use: No Drug/Substance Use Hx: No Review of Systems - Review of Systems Able to Perform ROS?: Yes Constitutional: No: Symptoms Reported, Absent: Chills, Diaphoresis, Fever, , Weight Stable, Unintentional Wgt. Loss, Unexplained wt Loss, Other HEENTM: No: Symptoms Reported, Absent, Eye Pain, Blurred Vision, Tearing, Recent change in vision, Double Vision, Respiratory: No: Symptoms reported, Absent: Cough, Orthopnea, Shortness of Breath, SOB with Exertion, SOB at Rest, Cardiac (ROS): No: Symptoms Reported, Absent: Chest Pain, Edema, Irregular Heart Rate, Lightheadedness, Palpitations, ABD/GI: Yes: Abdominal cramping, pain, nausea : No: Symptoms Reported, Absent: Burning, Dysuria, Discharge, Frequency, Flank Pain, Musculoskeletal: No: Symptoms Reported, Absent: Back Pain, Gout, Joint Pain, Joint Swelling, Muscle Pain, Muscle Weakness, Integumentary: No: Symptoms Reported, Absent: Bruising, Change in Color, Change in Hair/Nails, Dryness, Erythema, Neurological: No: Symptoms reported,Absent: Headache, Numbness, Paresthesia, Pre -Existing Deficit, Seizure, Tingling, Psychiatric: No: Anxiety, Depression, Frequent Crying, Stressors, Sleep Pattern Change, Emotional Problems, Mood Swings, Change in Appetite, Other Endocrine: No: Symptoms Reported, Absent: Excessive Sweating, Flushing, Intolerance to Cold, Intolerance to Heat, Hematologic/Lymphatic: No: Symptoms Reported, Absent: Anemia, Blood Clots, Easy Bleeding, Easy Bruising, Bleeding Diathesis, *Physical Exam - Vital Signs Vital Signs Temp 98.1 F 06/14/19 07:03 Pulse 62 06/14/19 07:03 Resp 20 06/14/19 07:03 BP 92/50 L 06/14/19 07:03 Pulse Ox 98 06/14/19 02:50 Intake & Output 06/13/19 06/13/19 06/14/19 11:59 23:59 11:59 Intake Total 375 Balance 375 Weight 172 lb 172 lb 11.2 oz Intake: IV 375 Normal Saline - 1,000 ml 300 @ 100 mls/hr IV ASDIR SUSAN Rx#:[id number] Normal Saline - 1,000 ml 75 @ 75 mls/hr IV ASDIR SUSAN Rx#:[id number] Other: Voiding Method Toilet Height 5 ft 8 in 5 ft 5 in Body Mass Index (BMI) 26.1 28.7 Weight Measurement Method Built in [facility] Weight Measurement Method Est/Stated by Patient CBC, BMP 06/14/19 06:19 06/14/19 06:19 - Physical Exam Comments: General Appearance: A&Ox3, NAD HEENT: NC/AT Respiratory/Chest: Unlabored resp on RA, No auditory Wheezing, Gastrointestinal/Abdominal: Tender, Soft, epigastric and umbilical tenderness, focal RLQ pain, no CVA tenderness, no guarding or rebound tenderness, negative Psoas, Mena's, and Rovsing's Neurologic: positive: videogame designer II-XII NML grossly intact, Fully Oriented, Alert, Normal Mood/Affect, Normal Response, Motor Strength 5/5. ABD CT: findings consistent with Acute appendicitis. Problem List - Problems (1) Appendicitis Assessment/Plan: Acute Appendicitis. -Consent to be obtained by surgeon at bedside after patient has had ample time to ask questions -NPO for Laparoscopic appendectomy -GI and DVT prophylaxis -Medical optimization Evaluation and plan discussed with Dr Higgins. Code(s): K37 - UNSPECIFIED APPENDICITIS
[2019-06-14] MEDS ORDERED: CEFTRIAXONE 1 GM in DEXTROSE 5%-WATER - 100 ML IVPB SCH (10:00)
[2019-06-14] MEDS ORDERED: FLU VACCINE QUAD 60 MCG/0.5 ML (MDV 19-20) IM ONE (10:00)
--- NOTE | 2019-06-14 12:09 | PN ---
Teaching Attending Note Name of Resident: Yesi Terrazas ATTENDING PHYSICIAN STATEMENT I saw and evaluated the patient. I reviewed the resident's note and discussed the case with the resident. I agree with the resident's findings and plan as documented. SUBJECTIVE:pain is improved. denies CP, SOB, fever, chills, N/V/C/D OBJECTIVE: Last Vital Signs Temp Pulse Resp BP Pulse Ox 98.1 F 63 18 101/58 L 98 06/14/19 11:42 06/14/19 11:42 06/14/19 11:42 06/14/19 11:42 06/14/19 02:50 general NAD CV S1 S2 RRR no murmur/rub/gallop Lungs CTA B/L no wheezing/rales/rhonch Abdomen soft ND +RLQ tenderness +rovsing sign +mcburney point ASSESSMENT AND PLAN: 34yo with no PMH presented with abdominal pain and found to be septic due to acute appendicitis 1. Sepsis due to acute appendicitis- clinically stable. NPO, IVF, ceftriaxone and flagyl. scheduled for OR this afternoon. if no complications and stable post -operatively possible d/c later today. will f/u surgery recommendations
[2019-06-14] MEDS ORDERED: MIDAZOLAM HCL 2 MG/2 ML SINGLE DOSE VIAL ONE (12:46)
[2019-06-14] MEDS ORDERED: DEXAMETHASONE SOD PHOSPHATE 4 MG/1 ML VIAL ONE (12:46)
[2019-06-14] MEDS ORDERED: ROCURONIUM BROMIDE 50 MG/5 ML SYRINGE ONE (12:46)
[2019-06-14] MEDS ORDERED: PROPOFOL 20 ML ONE ×2 (12:46→13:57)
[2019-06-14] MEDS ORDERED: LIDOCAINE HCL/PF 2% SDV 5ML VIAL ONE (12:46)
[2019-06-14] MEDS ORDERED: fentaNYL CITRATE 250 MCG/5 ML VIAL ONE (12:46)
[2019-06-14] MEDS ORDERED: BUPIVACAINE HCL/PF 0.5% (5 MG/ML) 30 ML VIAL IJ ONE (12:57)
[2019-06-14] MEDS ORDERED: BENZOIN TINCTURE SWABSTICK TP ONE (13:49)
[2019-06-14] MEDS ORDERED: BUPIVACAINE HCL/PF 0.5% (5MG/ML) 10 ML VIAL IJ ONE ×2 (13:53)
[2019-06-14] MEDS ORDERED: BENZOIN/ALOE VERA/STORAX/TOLU 58 ML BOTTLE TP ONE (13:53)
[2019-06-14] MEDS ORDERED: GLYCOPYRROLATE 0.2 MG/1 ML VIAL ONE (13:59)
[2019-06-14] MEDS ORDERED: NEOSTIGMINE METHYLSULFATE 0.5 MG/ML - 10 ML MDV ONE (13:59)
[2019-06-14] MEDS ORDERED: KETOROLAC TROMETHAMINE 30 MG/1 ML VIAL ONE (14:04)
--- NOTE | 2019-06-14 14:32 | OP ---
Operative Note - Note: Operative Date: 06/14/19 Pre-Operative Diagnosis: acute appendicitis Operation: laparoscopic appendectomy Findings: acute appendicitis Post-Operative Diagnosis: Same as Pre-op Surgeon: Yaya Higgins Field Rep: Jeanmarie Sy Anesthesia: General Specimens Removed: appendix Estimated Blood Loss (mls): 5
--- NOTE | 2019-06-14 14:45 | EKG ---
Test Reason : Blood Pressure : / mmHG Vent. Rate : 099 BPM Atrial Rate : 099 BPM P-R Int : 168 ms QRS Dur : 092 ms QT Int : 338 ms P-R-T Axes : 068 080 054 degrees QTc Int : 433 ms NORMAL SINUS RHYTHM POSSIBLE LEFT ATRIAL ENLARGEMENT BORDERLINE ECG NO PREVIOUS ECGS AVAILABLE Confirmed by RANULFO TEJADA MD ([id number]) on 06/14/2019 2:45:16 PM Referred By: Confirmed By:RANULFO TEJADA MD
[2019-06-14] MEDS ORDERED: ONDANSETRON 4 MG/2 ML VIAL IVPUSH PRN (14:46)
[2019-06-14] MEDS ORDERED: oxyCODONE HCL 5 MG TABLET PO PRN ×2 (14:46)
--- NOTE | 2019-06-14 16:57 | DS ---
Physical Exam: SUBJECTIVE: Patient seen and examined in PACU. He reports pain is controlled and his not nauseous. 06/15/19- Pt seen and examined. He reports abdominal pain is minimal at 2/10. He denies nausea/vomiting. Tolerating liquids. No fever or chills. OBJECTIVE: Vital Signs Period Temp Pulse Resp BP Sys/Nolen Pulse Ox Last 24 Hr 98.1 F-99.8 F 58-101 11-20 92-128/50-79 96-100 PHYSICAL EXAM GENERAL: The patient is awake, alert, and fully oriented, in no acute distress. HEAD: Normal with no signs of trauma. EYES: PERRL, extraocular movements intact, sclera anicteric, conjunctiva clear. ENT: Ears normal, nares patent, moist mucous membranes. NECK: Trachea midline, full range of motion, supple. LUNGS: Breath sounds equal, clear to auscultation bilaterally, no wheezes, no crackles, no accessory muscle use. HEART: Regular rate and rhythm, S1, S2 without murmur, rub or gallop. ABDOMEN: Soft, mild tender lower abdomen, nondistended, normoactive bowel sounds EXTREMITIES: 2+ pulses, warm, well-perfused, no edema. NEUROLOGICAL: Cranial nerves II through XII grossly intact. Normal speech, gait not observed. PSYCH: Normal mood, normal affect. SKIN: Warm, dry, normal turgor, no rashes or lesions noted. LABS Laboratory Results - last 24 hr 06/13/19 06/13/19 06/13/19 20:32 20:32 20:32 WBC 14.8 H RBC 4.96 Hgb 14.1 Hct 43.3 MCV 87.5 MCH 28.4 MCHC 32.5 RDW 13.7 Plt Count 276 D MPV 7.6 Absolute Neuts (auto) 12.3 H Neutrophils % 83.1 H Lymphocytes % 8.3 D Monocytes % 7.2 Eosinophils % 0.8 Basophils % 0.6 Nucleated RBC % 0 PT with INR INR PTT (Actin FS) Sodium 136 Potassium 4.1 Chloride 102 Carbon Dioxide 29 Anion Gap 5 L BUN 11.8 Creatinine 0.8 Est GFR (CKD-EPI)AfAm 136.03 Est GFR (CKD-EPI)NonAf 117.37 Random Glucose 105 Calcium 8.9 Total Bilirubin 0.2 AST 21 ALT 35 Alkaline Phosphatase 93 Total Protein 7.7 Albumin 4.2 Lipase 139 Urine Color Yellow Urine Appearance Clear Urine pH 7.0 Ur Specific [place] 1.021 Urine Protein Negative Urine Glucose (UA) Negative Urine Ketones Negative Urine Blood Negative Urine Nitrite Negative Urine Bilirubin Negative Urine Urobilinogen 0.2 Ur Leukocyte Esterase Negative Blood Type Antibody Screen 06/14/19 06/14/19 06/14/19 00:35 00:35 06:19 WBC 11.6 H RBC 4.52 Hgb 13.2 Hct 39.7 MCV 87.8 MCH 29.2 MCHC 33.3 RDW 13.6 Plt Count 250 MPV 7.9 Absolute Neuts (auto) Neutrophils % Lymphocytes % Monocytes % Eosinophils % Basophils % Nucleated RBC % PT with INR 13.60 H INR 1.15 H PTT (Actin FS) Sodium Potassium Chloride Carbon Dioxide Anion Gap BUN Creatinine Est GFR (CKD-EPI)AfAm Est GFR (CKD-EPI)NonAf Random Glucose Calcium Total Bilirubin AST ALT Alkaline Phosphatase Total Protein Albumin Lipase Urine Color Urine Appearance Urine pH Ur Specific [place] Urine Protein Urine Glucose (UA) Urine Ketones Urine Blood Urine Nitrite Urine Bilirubin Urine Urobilinogen Ur Leukocyte Esterase Blood Type O POSITIVE Antibody Screen Negative 06/14/19 06/14/19 06/14/19 06:19 06:19 06:25 WBC RBC Hgb Hct MCV MCH MCHC RDW Plt Count MPV Absolute Neuts (auto) Neutrophils % Lymphocytes % Monocytes % Eosinophils % Basophils % Nucleated RBC % PT with INR 13.60 H INR 1.15 H PTT (Actin FS) 37.2 H Sodium 140 Potassium 3.9 Chloride 108 H Carbon Dioxide 27 Anion Gap 5 L BUN 7.3 Creatinine 0.6 Est GFR (CKD-EPI)AfAm 153.11 Est GFR (CKD-EPI)NonAf 132.10 Random Glucose 102 Calcium 8.2 L Total Bilirubin 0.6 AST 16 ALT 28 Alkaline Phosphatase 78 Total Protein 6.3 L Albumin 3.3 L Lipase Urine Color Urine Appearance Urine pH Ur Specific [place] Urine Protein Urine Glucose (UA) Urine Ketones Urine Blood Urine Nitrite Urine Bilirubin Urine Urobilinogen Ur Leukocyte Esterase Blood Type O POSITIVE Antibody Screen HOSPITAL COURSE: Mr. Be is a 34y/o with no PMH who presents with sudden onset abdominal pain x 4 days in RLQ non-radiating. Pt was afebrile but had leukocytosis. CT positive for acute non-perforated appendicitis. Given rocephin and flagyl. Appendectomy performed without complication. Pt tolerated liquid diet and was discharged the next day with minimal abdominal pain. Recommended OTC meds for pain and follow up with surgery in 1 week. Date of Admission:06/14/19 Date of Discharge: 06/15/19 Minutes to complete discharge: 35 Discharge Summary Problems reviewed: Yes Reason For Visit: ABD/PAIN Current Active Problems Appendicitis (Acute) Condition: Stable - Instructions Diet, Activity, Other Instructions: Hospital Visit: You were admitted to the hospital because you had abdominal pain and appendicitis. Dr. Higgins removed your appendix. You are feeling better and are ready for discharge. Dear NITA BE, Post Operative Instructions Physical activity Resume your normal everyday activity as tolerated no heavy lifting or exercise until seen by your surgeon. You may walk unlimited amounts of and climb stairs. You may resume driving the car when you feel safe and comfortable behind the wheel and no longer taking narcotics. Wound care If you have a bandage, leave it on, and keep dry for 48 hours. After that time discard the outer bandage. If there are tapes on the skin under the outer bandage, leave them in place. They will peel off in the next 7 to 10 days. Do Not peel them off. You may shower 2 days after surgery but do not submerge the incisions. If there are tapes present on the skin, they can get wet. Do not apply lotion or ointments to incisions. Diet There are no dietary restrictions. Eat healthy, high-fiber foods. Drink 6 to 8 glasses of liquid each day. This will assist in keeping your bowels are regular. Pain management You may take Tylenol or acetaminophen or Ibuprofen (for example, Motrin, Advil etc.) Any pain prescription medication ordered should be taken as prescribed for moderate to severe pain. Call Dr. Higgins for any of the following: Severe pain not relieved by medication Fever of 101 or higher Excessive bleeding or drainage on dressing Inability to urinate If you experience any chest pain or shortness of breath please seek emergency treatment immediately. Return to the emergency room if your abdominal pain returns, if you have fever above 101, chills, shortness of breath, wheezing, and chest pain. Call the office at [phone] for a post operative appointment in 7 - [address] Ramos, your primary care doctor, in 1-2 weeks if you have any other concerns. Referrals: Yaya Higgins MD [Staff Physician] - Disposition: HOME - Home Medications Comprehensive Discharge Medication List: Ambulatory Orders NK [No Known Home Medication] 06/14/19 This patient is new to me today: Yes Date on this admission: 06/14/19 Emergency Visit: Yes ED Registration Date: 06/14/19 Care time: The patient presented to the Emergency Department on the above date and was hospitalized for further evaluation of their emergent condition. Critical Care patient: No - Discharge Referral Referred to [facility] Med [facility] No ATTENDING PHYSICIAN STATEMENT I saw and evaluated the patient. I reviewed the resident's note and discussed the case with the resident. I agree with the resident's findings and plan as documented. SUBJECTIVE: OBJECTIVE: ASSESSMENT AND PLAN:
[2019-06-14] MEDS ORDERED: PT OWN MED DRAWER 7, Y5N ONE (21:31)
[2019-06-14] MEDS ORDERED: CEFTRIAXONE 1 GM in DEXTROSE 5%-WATER - 50 ML IVPB SCH (22:00)
--- NOTE | 2019-06-15 09:53 | PN ---
Progress Note (short form) - Note Progress Note: POD #1 laparoscopic appendectomy patient seen and examined at bedside with no complaints. He has been tolerating his diet and ambulating without assistance. He has minimal pain and denies any CP, SOB, N/V fever or chills. Vital Signs Temp 98.2 F 06/15/19 05:00 Pulse 58 L 06/15/19 05:00 Resp 20 06/15/19 05:00 BP 107/46 L 06/15/19 05:00 Pulse Ox 99 06/14/19 21:00 Intake & Output 06/14/19 06/14/19 06/15/19 11:59 23:59 11:59 Intake Total 375 1925 788 Output Total 1400 Balance 375 525 788 Weight 172 lb 11.2 oz Intake: IV 375 1825 788 Normal Saline - 1,000 ml 300 @ 100 mls/hr IV ASDIR SUSAN Rx#:[id number] Normal Saline - 1,000 ml 75 @ 75 mls/hr IV ASDIR SUSAN Rx#:[id number] Normal Saline - 1,000 ml 825 788 @ 75 mls/hr IV ASDIR SUSAN Rx#:[id number] IVPB 100 0 Output: Urine 1400 Void 900 Other: Voiding Method Urinal Urinal Bowel Movement No No Height 5 ft 5 in Body Mass Index (BMI) 28.7 Weight Measurement Method Built in [facility] CBC, BMP 06/14/19 06:19 06/14/19 06:19 PE: A&Ox3, NAD Unlabored resp on RA Abd: SOft, NT/ND with dressings intact and no tracking erythema, or active d/c, minimal ttp at RLQ appropriate to status. B/L LE compartments soft, supple and non-tender with +2 DP pulses. Problem List - Problems (1) Appendicitis Assessment/Plan: POD #1 lap appy doing well. -regular diet -OOB as tolerated -Daily IS -D/c home today if tolerating diet. -f/u with Dr Higgins as outpatient Evaluation and plan discussed with Dr Higgins Code(s): K37 - UNSPECIFIED APPENDICITIS
[2019-06-15 10:02] VITALS: BP 104/50; PULSE 70; TEMP 98.5
--- NOTE | 2019-06-15 10:42 | PN ---
Progress Note (short form) - Note Progress Note: Anesthesia postop note 34 y/o M s/p GA for laparoscopic appendectomy POD#1, vss, aaaox3, no complaints No anesthesia complications.
--- NOTE | 2019-06-15 11:09 | PN ---
Teaching Attending Note Name of Resident: Yesi Terrazas ATTENDING PHYSICIAN STATEMENT I saw and evaluated the patient. I reviewed the resident's note and discussed the case with the resident. I agree with the resident's findings and plan as documented. SUBJECTIVE:mild pain that is controlled. tolerating diet. +flatus. denies Cp, SOB, fever, chills, N/V/C/D OBJECTIVE: Last Vital Signs Temp Pulse Resp BP Pulse Ox 98.5 F 70 18 104/50 L 99 06/15/19 10:06/15/19 10:02 06/15/19 10:06/15/19 10:06/14/19 21:00 general NAD CV S1 S2 RRR no murmur/rub/gallop Lungs CTA B/L no wheezing/rales/rhonch Abdomen soft slight distnetion +RLQ tenderness. surgical bandages c/d/i ASSESSMENT AND PLAN: 34yo with no PMH presented with abdominal pain and found to be septic due to acute appendicitis 1. Sepsis due to acute appendicitis-s/p laprascopic appendectomy on 06/14. tolerated surgery well. no complications. tolerating diet. d/c home with instructions from surgeon with outpatient follow up.
--- NOTE | 2019-06-15 11:14 | OP ---
DATE OF OPERATION: 06/14/2019 PREOPERATIVE DIAGNOSIS: Acute appendicitis. POSTOPERATIVE DIAGNOSIS: Acute appendicitis. PROCEDURE: Laparoscopic appendectomy. SURGEON: Yaya Higgins MD TIRE WRAPPER: HERI Murillo ANESTHESIA: General. OPERATIVE FINDINGS: Acute suppurative appendicitis. The rest of the findings were unremarkable. DESCRIPTION OF PROCEDURE: The patient was placed on the operating room in supine position, and after the induction of general anesthesia and placement of a Hassan catheter, the abdomen was prepped with ChloraPrep and draped in sterile fashion. Time-out was taken and pneumoperitoneum established at the umbilicus using a Veress needle to an intra-abdominal pressure of 15 mmHg. A 5-mm port was then placed at the umbilicus and additional 5-mm port in the left lower quadrant and a 12-mm port in the suprapubic area just to the left of the midline. Laparoscopy was carried out, and the previously noted findings were observed. The appendix was grasped and identified at its base by the junction of the 3 taeniae of the right colon onto the cecum. The mesoappendix was serially divided using LigaSure device until the base was completely clear. Next, a 45-mm purple load Endo SVETLANA was fired across the base of the appendix. The appendix was then placed in an EndoCatch and brought up to the abdominal wall, and hemostasis in the base of the appendix checked for and noted to be good. Next, the appendix was brought out through the suprapubic port, and again, hemostasis verified. Next, all ports were removed under laparoscopic vision without evidence of bleeding from the port sites and the pneumoperitoneum evacuated through all the port sites. All port sites were infiltrated with 0.5% Marcaine, and the defect in the port site of the suprapubic area was closed with a single [id number] Vicryl suture. The skin edges were closed in all cases with 4-0 Monocryl in a subcuticular continuous fashion followed by Steri-Strips and Band-Aid dressings. The Hassan catheter was removed at the completion of the surgery and the patient aroused from general anesthesia and transferred to the post anesthesia care unit in stable condition awake and alert. ESTIMATED BLOOD LOSS: Minimal. DRAINS: None. SPECIMEN: Appendix to Pathology. I, Yaya Higgins, was physically present in the operating room from the time the patient was placed on the operating room table until he was transferred to the post anesthesia care unit in [facility]. MD MOHIT [id number] MTDD
--- NOTE | 2019-06-15 19:10 | PATH ---
Surgical Pathology Report Patient Name: NITA BE Med. Rec. #: [id number] /Age/Gender: 1985 (Age: 34) / M Account: [id number] Location: [facility] MED/SURG Taken: 06/14/2019 Received: 06/14/2019 Reported: 06/15/2019 Physicians: Serenity Arias M.D. Specimen(s) Received APPENDIX Clinical History Acute appendicitis Final Diagnosis APPENDIX, LAPAROSCOPIC APPENDECTOMY: ACUTE APPENDICITIS AND PERIAPPENDICITIS. Electronically Signed Luna Shell M.D. Gross Description Received in formalin, labeled "appendix," is an 8 cm. in length vermiform appendix with a stapled margin of resection and moderate attached fat. The serosa shows patchy serosal exudate adjacent to the tip of the appendix. Sectioning shows a 0.2 cm lumen with hemorrhagic contents. The wall of the appendix averages 0.2 cm. in thickness. Hydrodynamics Teacher sections are submitted in one cassette.
--- NOTE | 2019-07-26 13:15 | SURG ---
Surgery Steel Pan Form Placing Supervisor Note Steel Pan Form Placing Supervisor: Jeanmarie Sy PA-C Date of Service: 06/14/19 Diagnosis: acute appendicitis Procedure: laproscopic appendectomy I was present for the entirety of the operative procedure. For further detail, please refer to operative report. Visit type - Case Type Case Type: ED Admission - Emergency Emergency Visit: Yes ED Registration Date: 06/14/19 Care time: The patient presented to the Emergency Department on the above date and was hospitalized for further evaluation of their emergent condition. - New patient This patient is new to me today: No - Critical Care Critical Care patient: No
== END 2019-06-15 12:30 | disposition home or self-care (01) | DRG 710 ==
LOC: JER 20:05 → JERBED 06-14 00:17 → J8W 06-14 02:59
PROVIDERS: ADMIT Internal Medicine; ATTEND Internal Medicine
PROC: 0DTJ4ZZ Resection of Appendix, Percutaneous Endoscopic Approach (ICD-10-PCS; principal; 2019-06-14 12:30)
DX: A41.89 Other specified sepsis (principal); K35.890 Other acute appendicitis without perforation or gangrene; R10.31 Right lower quadrant pain; D72.829 Elevated white blood cell count, unspecified
CPT/HCPCS: 36415; 74177-TC; 76705-TC; 80053; 81003; 83690; 85025; 85027; 85610; 85730; 86850; 86900; 86901; 88304-TC; 93005; 93010; 94760; 99285-25; J0131; J7030; Q2036; Q9967

== ENCOUNTER 2019-07-10 16:42 | Emergency (ER) | payer OTHER ==
--- NOTE | 2019-07-10 16:51 | PDOC ---
Rapid Medical Evaluation Time Seen by Provider: 07/10/19 16:49 Medical Evaluation: Allergies Allergy/AdvReac Type Severity Reaction Status Date / Time No Known Allergies Allergy Verified 06/13/19 20:14 07/10/19 16:50 I have performed a brief in-person evaluation of this patient. The patient presents with a chief complaint of: L sided abd pain x 5 days, no n/ v/f/c or acute change in BM. S/p lab appy 06/14 at [facility] Pertinent physical exam findings:stable w/ benign abd I have ordered the following: labs The patient will proceed to the ED for further evaluation. Discharge Disposition - Diagnosis Abdominal pain Qualifiers: Abdominal location: unspecified location Qualified Code(s): R10.9 - Unspecified abdominal pain - Referrals - Patient Instructions - Post Discharge Activity
[2019-07-10 16:53] VITALS: BP 94/71; PULSE 64; TEMP 98.1; BMI 26.9
[2019-07-10 17:28] LABS: BASO % 0.7 % (0-2.0); EOS % 5.8 % (0-4.5); HEMATOCRIT 45.6 % (35.4-49); HEMOGLOBIN 14.5 GM/dL (11.7-16.9); LYMPH % 32.4 % (8-40); MCH 28.2 pg (25.7-33.7); MCHC 31.8 g/dl (32.0-35.9); MEAN CELL VOLUME 88.5 fl (80-96); MEAN PLT VOLUME 7.9 fl (7.5-11.1); MONO % 8.7 % (3.8-10.2); NEUT % 52.4 % (42.8-82.8); PLATELET COUNT 262 K/MM3 (134-434); RBC 5.15 M/mm3 (4.00-5.60); RDW 13.5 % (11.9-15.9); WHITE BLOOD COUNT 7.8 K/mm3 (4.0-10.0)
--- NOTE | 2019-07-10 17:32 | PDOC ---
History of Present Illness - General Chief Complaint: Pain Stated Complaint: PAIN Time Seen by Provider: 07/10/19 16:49 - History of Present Illness Initial Comments: 07/10/19 17:25 34M with pmh of appendectomy on 06/[address] Higgins presents to the ED 09/21 LLQ pain since Tuesday. 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 he moved his bowels appropriately today at 2pm and is passing gas normally. He couldn't come to the Er before today because of work. He wanted to make sure everything was ok. Denies fever, chills, nausea, vomiting, dysyria, diarrhea or constipation. Has been taking tylenol/advil for pain, last dose yesterday. Past History - Past Medical History Allergies/Adverse Reactions: Allergies Allergy/AdvReac Type Severity Reaction Status Date / Time No Known Allergies Allergy Verified 07/10/19 16:54 Home Medications: Ambulatory Orders NK [No Known Home Medication] 06/14/19 COPD: No - Surgical History Appendectomy: Yes - Immunization History Immunization Up to Date: Yes - Psycho Social/Smoking Cessation Hx Smoking History: Former smoker Have you smoked in the past 12 months: No Number of Cigarettes Smoked Daily: 5 Information on smoking cessation initiated: No 'Breaking Loose' booklet given: 06/14/19 Hx Alcohol Use: No Drug/Substance Use Hx: No Review of Systems - Review of Systems Able to Perform ROS?: Yes Is the patient limited Ethiopian proficient: No Constitutional: No: Symptoms Reported HEENTM: No: Symptoms Reported Respiratory: No: Symptoms reported Cardiac (ROS): No: Symptoms Reported ABD/GI: Yes: See HPI : No: Symptoms Reported Musculoskeletal: No: Symptoms Reported Integumentary: No: Symptoms Reported Neurological: No: Symptoms reported All Other Systems: Reviewed and Negative *Physical Exam - Vital Signs Last Vital Signs Temp Pulse Resp BP Pulse Ox 98.1 F 64 18 94/71 97 07/10/19 16:50 07/10/19 16:50 07/10/19 16:50 07/10/19 16:50 07/10/19 16:50 - Physical Exam General Appearance: Yes: Nourished, Appropriately Dressed. No: Apparent Distress HEENT: positive: EOMI, ANDREA, Normal ENT Inspection Respiratory/Chest: positive: Lungs Clear, Normal Breath Sounds. negative: Chest Tender, Respiratory Distress Cardiovascular: positive: Regular Rhythm, Regular Rate, S1, S2 Gastrointestinal/Abdominal: positive: Normal Bowel Sounds, Flat, Soft. negative : Tender Musculoskeletal: positive: Normal Inspection. negative: CVA Tenderness Extremity: positive: Normal Capillary Refill, Normal Inspection, Normal Range of Motion Integumentary: positive: Normal Color, Dry, Warm Neurologic: positive: Fully Oriented, Alert, Normal Mood/Affect, Normal Response , Motor Strength 01/14 ED Treatment Course - LABORATORY CBC & Chemistry Diagram: 07/10/19 17:08 07/10/19 17:08 Medical Decision Making - Medical Decision Making 07/10/19 17:35 34M with pmh of appendectomy on 06/[address] Higgins presents to the ED 09/21 LLQ pain since Tuesday Basic labs, UA and likely discharge. 07/10/19 18:00 All labs negative ok to dc with follow up. Discharge - Discharge Information Problems reviewed: Yes Clinical Impression/Diagnosis: Abdominal pain Qualifiers: Abdominal location: unspecified location Qualified Code(s): R10.9 - Unspecified abdominal pain Condition: Improved Disposition: HOME - Admission No - Follow up/Referral - Patient Discharge Instructions Patient Printed Discharge Instructions: DI for Abdominal Pain-Adult Additional Instructions: Follow up with your primary care physician within the week . Come back to the Emergency department for any new, worsening or concerning symptoms - Post Discharge Activity
[2019-07-10 17:49] LABS: BILIRUBIN,TOTAL 0.2 mg/dL (0.2-1); CALCIUM 8.7 mg/dL (8.5-10.1); CREATININE 0.9 mg/dL (0.55-1.3); POTASSIUM 4.1 mmol/L (3.5-5.1); TOT PROT 7.3 g/dl (6.4-8.2)
[2019-07-10 17:59] LABS: PH,URINE 6.5 (5.0-8.0); URINE APPEARANCE CLEAR; URINE BILIRUBIN NEGATIVE (NEGATIVE); URINE COLOR YELLOW; URINE GLUCOSE (UA) NEGATIVE (NEGATIVE); URINE KETONE NEGATIVE (NEGATIVE); URINE LEUK ESTERASE NEGATIVE (NEGATIVE); URINE NITRITE NEGATIVE (NEGATIVE); URINE PROTEIN NEGATIVE (NEGATIVE); URINE UROBILINOGEN 0.2 mg/dL (0.2-1.0)
--- NOTE | 2019-07-10 18:37 | PDOC ---
Documentation entered by Flores Salinas SCRIBE, acting as scribe for Tomas Mata MD. Tomas Mata MD: This documentation has been prepared by the Rita mendieta Adrianna, SCRIBE, under my direction and personally reviewed by me in its entirety. I confirm that the documentation accurately reflects all work, treatment, procedures, and medical decision making performed by me. Attending Attestation - Resident Resident Name: Rambo Plascencia - ED Attending Attestation I have performed the following: I have examined & evaluated the patient, The case was reviewed & discussed with the resident, I agree w/resident's findings & plan, Exceptions are as noted - HPI HPI: The patient is a 34 year old male, with a significant PMH of recent appendectomy (3.[address] Higgins), who presents to the ED for evaluation of abdominal pain for 4 days. Patient complains of intermittent, cramping, non-radiating abdominal pain most prominent over the LLQ. LBM was today and normal, and patient has been able to pass gas at this time. Denies any other acute complaints. Allergies: NKA, NKDA Surgical History: Appendectomy Social History: Current smoker (/ ppd). Denies EtOH or illicit drug use - Physicial Exam PE: Vitals: Triage vital signs reviewed General Appearance: No acute distress, well nourished, well developed Cardiac: Regular rate and rhythm, no murmurs, no rubs, no gallops Lungs: Clear to auscultation bilateral, good air movement bilaterally Abdomen: Soft, nondistended, normal bowel sounds, nontender to palpation Extremities: Full range of motion to all extremities, no cyanosis, clubbing, or edema Skin: Warm and dry, no rashes or lesions, no rash, no petechiae Neuro: AOX3; Cranial Nerves 2-12 grossly intact, Strength intact to all extremities, Sensation intact to all extremities Psych: Normal mood, normal affect - Medical Decision Making 34 year old male, with history of recent appendectomy, presents with abdominal pain. Plan: labs, UA, reassess 07/10/19 18:37 Well-appearing no apparent distress no abdominal pain no fever no white count improving left-sided abdominal discomfort labs within normal limits No indication for imaging at this time differential diagnosis includes gas constipation postoperative pain Patient instructed to return to the ED for any severe worsening symptoms fever nausea vomiting or for any concerns Findings, the need for follow-up and strict return instructions discussed with patient.
== END 2019-07-10 18:01 | disposition home or self-care (01) ==
LOC: JER 16:42
DX: R10.9 Unspecified abdominal pain (principal); Z98.890 Other specified postprocedural states; Z90.49 Acquired absence of other specified parts of digestive tract; Z87.891 Personal history of nicotine dependence
CPT/HCPCS: 36415; 80053; 81003; 85025; 99282-25

== ENCOUNTER 2019-09-25 19:34 | Emergency (ER) | payer OTHER ==
[2019-09-25 20:29] VITALS: BP 130/84; PULSE 74; TEMP 98.4; BMI 26.6
--- NOTE | 2019-09-25 22:55 | PDOC ---
History of Present Illness - General Chief Complaint: Pain, Acute Stated Complaint: ABDOMINAL PAIN Time Seen by Provider: 09/25/19 22:38 History Source: Patient Exam Limitations: No Limitations - History of Present Illness Travel History: No Initial Comments: 09/25/19 22:45 HISTORY OF PRESENT ILLNESS: 34-year-old male past medical history of appendectomy June 2019 presents to the emergency department for evaluation of left-sided abdominal pain. Patient reports he is had this pain for approximately 3-1/2 weeks describes as a aching burning sensation. Patient had a similar episode and was treated for H. pylori by his primary doctor 2 weeks ago. Patient reports the pain is now returned after finishing the 2-week supply of antibiotics and Prevacid. He denies dysuria, hematuria, nausea, vomiting, diarrhea, constipation, chest pain, shortness of breath. No recent travel or sick contacts. PAST MEDICAL HISTORY: H. pylori SURGICAL HISTORY: Appendectomy 06/30 ALLERGIES: No known drug allergies REVIEW OF SYSTEMS General/Constitutional: Denies fever or chills. Denies weakness, weight change. HEENT: Denies change in vision. Denies ear pain or discharge. Denies sore throat. Cardiovascular: Denies chest pain or shortness of breath. Respiratory: Denies cough, wheezing, or hemoptysis. Gastrointestinal: see HPI Genitourinary: Denies dysuria, frequency, or change in urination. Musculoskeletal: Denies joint or muscle swelling or pain. Denies neck or back pain. Skin and breasts: Denies rash or easy bruising. Neurologic: Denies headache, vertigo, loss of consciousness, or loss of sensation. Psychiatric: Denies depression or anxiety. Endocrine: Denies increased thirst. Denies abnormal weight change. Hematologic/Lymphatic: Denies anemia, easy bleeding, or history of blood clots. Allergic/Immunologic: Denies hives or skin allergy. Denies latex allergy. PHYSICAL EXAM General Appearance: Well-appearing, appropriately dressed. No apparent distress , no intoxication. Respiratory/Chest: Lungs CTAB. No shortness of breath, chest tenderness, respiratory distress, accessory muscle use. No crackles, rales, rhonchi, stridor , wheezing, dullness Cardiovascular: RRR. S1, S2. No JVD, murmur, bradycardia, tachycardia. Gastrointestinal/Abdominal: Normal bowel sounds. Abdomen soft, non-distended. No tenderness or rebound tenderness. No organomegaly, pulsatile mass, guarding, hernia, hepatomegaly, splenomegaly. Musculoskeletal/Extremities: Normal inspection. FROM of all extremities, normal capillary refill. Pelvis Stable. No CVA tenderness. No tenderness to extremities, pedal edema, swelling, erythema or deformity. Integumentary: Appropriate color, dry, warm. 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 Fully oriented, alert. Appropriate mood/affect. Motor strength 5/5. No appreciable EOM palsy, facial droop or sensory deficit. Past History - Past Medical History Allergies/Adverse Reactions: Allergies Allergy/AdvReac Type Severity Reaction Status Date / Time No Known Allergies Allergy Verified 07/10/19 16:54 Home Medications: Ambulatory Orders Esomeprazole Magnesium [Nexium 24Hr] 20 mg PO DAILY #30 tablet. 09/26/19 COPD: No - Surgical History Appendectomy: Yes - Immunization History Immunization Up to Date: Yes - Psycho Social/Smoking Cessation Hx Smoking History: Unknown if ever smoked Have you smoked in the past 12 months: No Number of Cigarettes Smoked Daily: 5 Information on smoking cessation initiated: No 'Breaking Loose' booklet given: 06/14/19 Hx Alcohol Use: No Drug/Substance Use Hx: No *Physical Exam - Vital Signs Last Vital Signs Temp Pulse Resp BP Pulse Ox 98.4 F 74 20 130/84 100 09/25/19 20:22 09/25/19 20:22 09/25/19 20:22 09/25/19 20:22 09/25/19 20:22 ED Treatment Course - LABORATORY CBC & Chemistry Diagram: 09/26/19 00:01 09/26/19 00:01 Medical Decision Making - Medical Decision Making 09/25/19 22:55 A/P: 34-year-old male with left upper quadrant pain for the past 3 weeks Most likely gastritis as patient was recently treated for H. pylori and then symptoms returned after discontinuation of Pepcid. As abdominal exam is benign I will collect basic labs with a full low threshold to image. CBC, CMP, lipase Urinalysis, urine culture Likely discharge home with prescription for PPI GI follow-up 09/26/19 01:51 Laboratory Tests 09/26/19 09/26/19 09/26/19 00:01 00:01 00:01 WBC 8.1 RBC 5.21 Hgb 15.1 Hct 45.5 MCV 87.4 MCH 29.1 MCHC 33.3 RDW 13.7 Plt Count 256 MPV 7.7 Absolute Neuts (auto) 4.3 Neutrophils % 52.8 Lymphocytes % 34.7 Monocytes % 7.9 Eosinophils % 4.0 Basophils % 0.6 Nucleated RBC % 0 Sodium 139 Potassium 4.4 Chloride 104 Carbon Dioxide 31 Anion Gap 4 L BUN 10.9 Creatinine 0.8 Est GFR (CKD-EPI)AfAm 136.03 Est GFR (CKD-EPI)NonAf 117.37 Random Glucose 93 Calcium 9.3 Total Bilirubin 0.3 AST 23 ALT 36 Alkaline Phosphatase 94 Total Protein 7.8 Albumin 4.0 Lipase 178 Urine Color Urine Appearance Urine pH Ur Specific [place] Urine Protein Urine Glucose (UA) Urine Ketones Urine Blood Urine Nitrite Urine Bilirubin Urine Urobilinogen Ur Leukocyte Esterase 09/26/19 01:15 WBC RBC Hgb Hct MCV MCH MCHC RDW Plt Count MPV Absolute Neuts (auto) Neutrophils % Lymphocytes % Monocytes % Eosinophils % Basophils % Nucleated RBC % Sodium Potassium Chloride Carbon Dioxide Anion Gap BUN Creatinine Est GFR (CKD-EPI)AfAm Est GFR (CKD-EPI)NonAf Random Glucose Calcium Total Bilirubin AST ALT Alkaline Phosphatase Total Protein Albumin Lipase Urine Color Yellow Urine Appearance Clear Urine pH 5.0 D Ur Specific [place] 1.024 Urine Protein Negative Urine Glucose (UA) Negative Urine Ketones Negative Urine Blood Negative Urine Nitrite Negative Urine Bilirubin Negative Urine Urobilinogen 0.2 Ur Leukocyte Esterase Negative Given normal abdominal exam and normal laboratory testing I feel it is safe to discharge patient home. Patient has been instructed to follow-up with his primary doctor for continued evaluation of his gastritis. Prescription for Nexium provided. I discussed the physical exam findings, ancillary test results and final diagnoses with the patient. I answered all of the patient's questions. The patient was satisfied with the care received and felt comfortable with the discharge plan and treatment plan. The patient will call their primary care physician within 24 hours to arrange follow-up and will return to the Emergency Department with any new, persistent or worsening symptoms. Discharge - Discharge Information Problems reviewed: Yes Clinical Impression/Diagnosis: Gastritis Qualifiers: Gastritis type: unspecified gastritis Gastritis bleeding: presence of bleeding unspecified Condition: Fair Disposition: HOME - Admission No - Additional Discharge Information Prescriptions: Esomeprazole Magnesium [Nexium 24Hr] 20 mg PO DAILY #30 tablet.dr - Follow up/Referral Referrals: ON STAFF,NOT [Primary Care Provider] - Izabela Nance MD [Staff Physician] - - Patient Discharge Instructions Additional Instructions: Rest, drink lots of fluids: Teas, water, soups Anca eduardo, carbonated beverages for the bubbles May try peppermint teas Avoid heavy , spicy or fatty foods until symptoms have resolved Continue [id number] medications for symptomatic relief Tylenol or Motrin for fever and pain Nexium 1 tablet daily. Followup with private physician in one to 2 days as needed Return to emergency department for worsened symptoms, fevers, dehydration - Post Discharge Activity
[2019-09-26 00:27] LABS: BASO % 0.6 % (0-2.0); HEMATOCRIT 45.5 % (35.4-49); HEMOGLOBIN 15.1 GM/dL (11.7-16.9); LYMPH % 34.7 % (8-40); MCH 29.1 pg (25.7-33.7); MCHC 33.3 g/dl (32.0-35.9); MEAN CELL VOLUME 87.4 fl (80-96); MEAN PLT VOLUME 7.7 fl (7.5-11.1); MONO % 7.9 % (3.8-10.2); NEUT % 52.8 % (42.8-82.8); PLATELET COUNT 256 K/MM3 (134-434); RBC 5.21 M/mm3 (4.00-5.60); RDW 13.7 % (11.9-15.9); WHITE BLOOD COUNT 8.1 K/mm3 (4.0-10.0)
[2019-09-26 00:41] LABS: BILIRUBIN,TOTAL 0.3 mg/dL (0.2-1); BLOOD UREA NITROGEN 10.9 mg/dL (7-18); CALCIUM 9.3 mg/dL (8.5-10.1); CREATININE 0.8 mg/dL (0.55-1.3); POTASSIUM 4.4 mmol/L (3.5-5.1); TOT PROT 7.8 g/dl (6.4-8.2)
[2019-09-26 01:27] LABS: URINE APPEARANCE CLEAR; URINE BILIRUBIN NEGATIVE (NEGATIVE); URINE COLOR YELLOW; URINE GLUCOSE (UA) NEGATIVE (NEGATIVE); URINE KETONE NEGATIVE (NEGATIVE); URINE LEUK ESTERASE NEGATIVE (NEGATIVE); URINE NITRITE NEGATIVE (NEGATIVE); URINE PROTEIN NEGATIVE (NEGATIVE); URINE UROBILINOGEN 0.2 mg/dL (0.2-1.0)
== END 2019-09-26 01:59 | disposition home or self-care (01) ==
LOC: SUPCPDRO 19:34 → JER 19:34
DX: K29.70 Gastritis, unspecified, without bleeding (principal); Z86.19 Personal history of other infectious and parasitic diseases; Z90.49 Acquired absence of other specified parts of digestive tract
CPT/HCPCS: 36415; 80053; 81003; 83690; 85025; 87086; 99283-25

== ENCOUNTER 2020-10-31 16:19 | Emergency (ER) | payer OTHER ==
[2020-10-31 16:41] VITALS: BP 119/75; PULSE 88; TEMP 97.9; BMI 28.8
[2020-10-31] MEDS ORDERED: SODIUM CHLORIDE 0.9% 500 ML INFUS.BAG IV ONE (17:08)
[2020-10-31 18:24] LABS: BASO % 0.9 % (0-2.0); EOS % 2.3 % (0-4.5); HEMATOCRIT 41.9 % (35.4-49); HEMOGLOBIN 13.8 GM/dL (11.7-16.9); LYMPH % 27.1 % (8-40); MCH 28.8 pg (25.7-33.7); MCHC 32.9 g/dl (32.0-35.9); MEAN CELL VOLUME 87.7 fl (80-96); MEAN PLT VOLUME 8.5 fl (7.5-11.1); MONO % 8.8 % (3.8-10.2); NEUT % 60.9 % (42.8-82.8); PLATELET COUNT 280 K/MM3 (134-434); RBC 4.78 M/mm3 (4.00-5.60); RDW 13.7 % (11.9-15.9); WHITE BLOOD COUNT 6.9 K/mm3 (4.0-10.0)
[2020-10-31 18:43] LABS: POTASSIUM 4.4 mmol/L (3.5-5.1)
[2020-10-31 18:45] LABS: CALCIUM 8.7 mg/dL (8.5-10.1)
[2020-10-31 18:46] LABS: BLOOD UREA NITROGEN 12.1 mg/dL (7-18)
[2020-10-31 18:48] LABS: CREATININE 0.7 mg/dL (0.55-1.3)
[2020-10-31 18:50] LABS: BILIRUBIN,TOTAL 0.4 mg/dL (0.2-1); TOT PROT 7.8 g/dl (6.4-8.2)
== END 2020-10-31 19:33 | disposition home or self-care (01) ==
LOC: JER 16:19
DX: R53.83 Other fatigue (principal)
CPT/HCPCS: 36415; 80053; 85025; 99284-25

== ENCOUNTER 2021-06-09 12:31 | Emergency (ER) | payer OTHER ==
[2021-06-09 13:07] VITALS: BP 126/81; PULSE 82; TEMP 98.8; BMI 26.6
== END 2021-06-09 13:33 | disposition home or self-care (01) ==
LOC: JER 12:31
DX: R51.9 Headache, unspecified (principal)
CPT/HCPCS: 99281-25

== ENCOUNTER 2021-07-16 23:08 | Emergency (ER) | payer OTHER ==
[2021-07-16 23:18] VITALS: BP 129/79; PULSE 76; TEMP 98; BMI 27.7
[2021-07-17] MEDS ORDERED: LIDOCAINE HCL 1%, 10 MG/ML (20ML VIAL) ONE (01:14)
== END 2021-07-17 01:35 | disposition home or self-care (01) ==
LOC: JER 23:08
DX: N34.1 Nonspecific urethritis (principal)
CPT/HCPCS: 36415; 86780; 87491; 87591; 87661; 99284-25

== ENCOUNTER 2021-07-20 00:26 | Emergency (ER) | payer OTHER ==
[2021-07-20 00:44] VITALS: BP 130/79; PULSE 88; TEMP 98.2; BMI 25.8
[2021-07-20 01:51] LABS: URINE APPEARANCE CLOUDY; URINE BILIRUBIN NEGATIVE (NEGATIVE); URINE COLOR YELLOW; URINE GLUCOSE (UA) NEGATIVE (NEGATIVE); URINE KETONE 1+ (NEGATIVE); URINE LEUK ESTERASE NEGATIVE (NEGATIVE); URINE NITRITE NEGATIVE (NEGATIVE); URINE PROTEIN NEGATIVE (NEGATIVE)
[2021-07-20] MEDS ORDERED: ACETAMINOPHEN 325 MG TABLET (FP) PO ONE (01:54)
[2021-07-20] MEDS ORDERED: ACETAMINOPHEN 325 MG TABLET (FP) ONE (01:57)
== END 2021-07-20 03:15 | disposition home or self-care (01) ==
LOC: JER 00:26
DX: R10.9 Unspecified abdominal pain (principal); Z20.3 Contact with and (suspected) exposure to rabies; N48.89 Other specified disorders of penis
CPT/HCPCS: 36415; 81003; 87086; 87491; 87591; 87661; 99284-25

== ENCOUNTER 2021-10-15 20:24 | Emergency (ER) | payer OTHER ==
[2021-10-15 20:32] VITALS: BP 120/77; PULSE 70; TEMP 97.7; BMI 27.4
== END 2021-10-15 23:04 | disposition home or self-care (01) ==
LOC: JER 20:24
DX: H68.103 Unspecified obstruction of Eustachian tube, bilateral (principal)
CPT/HCPCS: 99283-25

== ENCOUNTER 2022-03-01 01:17 | Emergency (ER) | payer OTHER ==
[2022-03-01 01:39] VITALS: TEMP 98.3; BMI 27.6
[2022-03-01 03:29] VITALS: BP 115/73; PULSE 55
== END 2022-03-01 03:41 | disposition home or self-care (01) ==
LOC: JER 01:17
DX: R20.2 Paresthesia of skin (principal)
CPT/HCPCS: 70450-TC; 99284-25

== ENCOUNTER 2022-10-21 18:19 | Emergency (ER) | payer OTHER ==
[2022-10-21 18:52] VITALS: BP 114/69; PULSE 82; RESP 18; TEMP 98.2; BMI 27.2
[2022-10-21 21:45] LABS: THROAT:GRP A STREP NOT DETECTED (NOTDETECTED)
== END 2022-10-21 21:46 | disposition home or self-care (01) ==
LOC: JERFT 18:19
DX: J02.9 Acute pharyngitis, unspecified (principal); R68.2 Dry mouth, unspecified
CPT/HCPCS: 0241U-QW; 87070; 87651; 99283-25

== ENCOUNTER 2024-11-08 20:55 | Emergency (ER) | payer OTHER ==
[2024-11-08 21:01] VITALS: BP 126/73; PULSE 86; RESP 18; TEMP 98.2; BMI 27.2
[2024-11-08] MEDS ORDERED: LIDOCAINE 5% TOPICAL PATCH ONE (22:26)
[2024-11-08] MEDS ORDERED: ACETAMINOPHEN 325 MG TABLET (FP) ONE (22:26)
[2024-11-08] MEDS: ACETAMINOPHEN 325 MG TABLET (FP) PO ONE (22:32)
[2024-11-08] MEDS: LIDOCAINE 4% PATCH TP ONE (22:33)
[2024-11-09] MEDS ORDERED: LIDOCAINE PATCH REMOVAL MC SCH (10:00)
== END 2024-11-08 23:47 | disposition home or self-care (01) ==
LOC: JER 20:55
DX: M54.50 Low back pain, unspecified (principal); R19.7 Diarrhea, unspecified; R10.84 Generalized abdominal pain
CPT/HCPCS: 93005; 93010; 99283-25